=== PATIENT | male | born 1990 | race Hispanic/Latino ===

== ENCOUNTER 2018-04-16 16:51 | Emergency (ER) | payer OTHER ==
[2018-04-16 17:13] VITALS: TEMP 98.7; O2SAT 98
[2018-04-16] MEDS ORDERED: Sodium Chloride 0.9% 1,000 ML IV STA (17:48)
[2018-04-16 18:23] LABS: BASO % 0.6 % (0.0-2.0); EOS % 0.3 % (0.0-4.0); HEMOGLOBIN 15.1 g/dL (12.0-18.0); LYMPH # 0.8 K/uL (1.0-4.3); LYMPH % 14.7 % (20.0-40.0); MEAN CELL VOLUME 89.1 fl (80.0-94.0); MEAN CORPUSCULAR HEMOGLOBIN 30.2 pg (27.0-31.0); MEAN CORPUSCULAR HGB CONC 33.9 g/dL (33.0-37.0); MEAN PLATELET VOLUME 8.8 fl (7.2-11.7); MONO # 0.2 K/uL (0.0-0.8); MONO % 4.3 % (0.0-10.0); NEUT # 4.3 K/uL (1.8-7.0); NEUT % 80.1 % (50.0-75.0); WHITE BLOOD COUNT 5.4 K/uL (4.8-10.8)
--- NOTE | 2018-04-16 18:28 | ED PDOC ---
HPI: Abdomen Time Seen by Provider: 04/16/18 17:21 Chief Complaint (Nursing): Palpitations Chief Complaint (Provider): Vomiting History Per: Patient History/Exam Limitations: no limitations Onset/Duration Of Symptoms: Hrs (morning) Additional Complaint(s): 27 y/o male presents to the ED complaining of vomiting onset earlier this morning. Patient states that he has not been able to tolerate food. He states he has a lot of nausea with some abdominal comfort but no pain. He has been having some loose abnormal stool but not diarrhea. He also has some chest discomfort but not pain. Denies shortness of breath or urinary symptoms. Vomiting was non- bilious and non-bloody. Patient admits to drinking heavily last night but not an amount he hasn't before. His brother who was also drinking last night reports feeling some discomfort but is not as severe. Patient notes that he just arrived from [facility] 10 days ago. Last week he had some nasal congestion for which he did saline rinses and symptoms improved. Denies fever, cough, or sore throat. Patient additionally reports that he felt like was going to pass out today. PMD: none here Past Medical History Reviewed: Historical Data, Nursing Documentation, Vital Signs Vital Signs: Last Vital Signs Temp 98.7 F 04/16/18 17:03 Pulse 92 H 04/16/18 17:03 Resp 18 04/16/18 17:03 BP 152/87 H 04/16/18 17:03 Pulse Ox 98 04/16/18 17:03 - Medical History PMH: No Chronic Diseases - Surgical History Surgical History: No Surg Hx - Family History Family History: States: [place] (>40s) - Social History Current smoker - smoking cessation education provided: Yes Alcohol: Social Drugs: Denies - Allergies Allergies/Adverse Reactions: Allergies Allergy/AdvReac Type Severity Reaction Status Date / Time No Known Allergies Allergy Verified 04/16/18 17:03 Review of Systems ROS Statement: Except As Marked, All Systems Reviewed And Found Negative (as per HPI otherwise negative) Constitutional: Negative for: Fever ENT: Positive for: Nose Congestion. Negative for: Throat Pain Respiratory: Negative for: Cough, Shortness of Breath Gastrointestinal: Positive for: Nausea, Vomiting. Negative for: Abdominal Pain, Diarrhea, Hematochezia Genitourinary Male: Negative for: Dysuria, Frequency, Incontinence Physical Exam - Reviewed Nursing Documentation Reviewed: Yes Vital Signs Reviewed: Yes - Physical Exam Appears: Positive for: Well, No Acute Distress Head Exam: Positive for: ATRAUMATIC, NORMOCEPHALIC Skin: Positive for: Warm, Dry Eye Exam: Positive for: EOMI, PERRL ENT: Positive for: Other (dry mucous membranes) Neck: Positive for: Painless ROM, Supple Cardiovascular/Chest: Positive for: Regular Rate, Rhythm. Negative for: Murmur Respiratory: Positive for: Normal Breath Sounds. Negative for: Respiratory Distress Gastrointestinal/Abdominal: Positive for: Normal Exam, Soft. Negative for: Tenderness Back: Positive for: Normal Inspection. Negative for: Decreased ROM Extremity: Positive for: Normal ROM. Negative for: Deformity Lymphatic: Negative for: Adenopathy Neurologic/Psych: Positive for: Alert. Negative for: Motor/Sensory Deficits - Laboratory Results Result Diagrams: 04/16/18 18:00 04/16/18 18:00 - ECG O2 Sat by Pulse Oximetry: 98 (RA) Pulse Ox Interpretation: Normal Medical Decision Making Medical Decision Making: Time: 17:42 Initial Impression: vomiting and near syncope Differential diagnosis including but not limited to dehydration, electrolyte abnormality, gastritis, or gastroenteritis Initial Plan: * EKG * CMP * Lactic acid * Lipase * Magnesium * Phosphorous * Troponin * ED Urine * CBC w/ diff * CXR * IV Fluids * Pepcid 20 mg * Zofran 8 mg 2300 No episodes of vomiting in the ER. Pt reports mild relief but still feeling heart racing. Repeat EKGs and vitals demonstrate normal sinus rhythm. Advised to continue rest and oral hydration and followup Clinic. Scribe Attestation: Documented by Derek Neely acting as a scribe for Kaitlin Good MD. Provider Scribe Attestation: All medical record entries made by the Scribe were at my direction and per sonally dictated by me. I have reviewed the chart and agree that the record accurately reflects my personal performance of the history, physical exam, medical decision making, and the department course for this patient. I have also personally directed, reviewed, and agree with the discharge instructions and disposition. Disposition - Clinical Impression Clinical Impression: Palpitations, Vomiting Counseled Patient/Family Regarding: Studies Performed, Diagnosis, Need For Followup - Disposition Referrals: [facility] [Outside] Disposition: Routine/Home Disposition Time: 14:19 Condition: STABLE Additional Instructions: FOLLOW UP AT CLINIC THIS WEEK FOR FURTHER EVALUATION Instructions: Nausea and Vomiting, Adult (DC), Palpitations (DC)
[2018-04-16 18:34] LABS: ALB/GLOB RATIO 1.4 (1.0-2.1); ALBUMIN 5.1 g/dL (3.5-5.0); ALT/SGPT 30 U/L (21-72); AST/SGOT 32 U/L (17-59); BLOOD UREA NITROGEN 19 mg/dl (9-20); GFR NON-AFRICAN AMERICAN > 60; LIPASE 25 U/L (23-300)
[2018-04-16 21:28] VITALS: BP 129/68; PULSE 62; RESP 17
--- NOTE | 2018-04-17 10:03 | CARD ---
APPROVED REPORT Date of service: 04/16/2018 EKG Measurement Heart [id number] [id number] <Conclusion> Normal sinus rhythm with sinus arrhythmia Normal ECG
--- NOTE | 2018-04-17 10:10 | CARD ---
APPROVED REPORT Date of service: 04/16/2018 EKG Measurement Heart [id number] [id number] <Conclusion> Normal sinus rhythm Normal Electrocardiogram
--- NOTE | 2018-04-17 12:53 | RAD ---
Date of service: 04/16/2018 HISTORY: chest pressure COMPARISON: No prior. TECHNIQUE: Chest PA and lateral FINDINGS: LUNGS: No active pulmonary disease. PLEURA: No significant pleural effusion identified. No pneumothorax apparent. CARDIOVASCULAR: No aortic atherosclerotic calcification present. Normal cardiac size. No pulmonary vascular congestion. OSSEOUS STRUCTURES: No significant abnormalities. VISUALIZED UPPER ABDOMEN: Normal. OTHER FINDINGS: None. IMPRESSION: No active disease.
== END 2018-04-16 21:34 | disposition home or self-care (01) ==
LOC: H.ER 16:51
DX: R00.2 Palpitations (principal); R11.10 Vomiting, unspecified
CPT/HCPCS: 71046; 80053; 82948; 83605; 83690; 83735; 84100; 84484; 85025; 93005; 96361; 96374; 96375; 99285; J2405; J7030